=== PATIENT | male | born 1930 | race Caucasian/White ===

== ENCOUNTER 2016-12-18 06:30 | Day surgery (SDC) | payer MEDICARE, OTHER ==
[~2016-12-18 06:30] MED LIST: ALLOPURINOL300 M1 PO; CIPRO500 MG PO; COLACE-T100 MG PO; COLACE100 M1 PO; COREG3.125 M1 PO; FISH OIL 1,2001 EAC5 PO; INDERAL40 MG PO; LEVAQUIN250 MG PO; Magnesium; NIACIN; NIACIN PO; PRILOSEC OTC20 M1 PO; VITAMIN D31000 UNI3 PO; VITAMIN D50000 UNIT PO
[2016-12-18 08:09] LABS: PROTHROMBIN TIME 11.1 SECONDS (9.0-13.6)
[2016-12-19 05:46] LABS: HCT-HEMATOCRIT 34.9 % (36.0-53.5); HGB-HEMOGLOBIN 11.7 gm/dl (13.5-17.0); MCV (MEAN CELL VOLUME) 89.3 fl (82.0-96.0); RED CELL DISTRIBUTION WIDTH 14.2 % (12.4-16.4)
[2016-12-19] MEDS ORDERED: CIPRO250 M2 PO (12:45)
== END 2016-12-19 14:20 ==
LOC: SRG 06:30 → SHSB 06:31 → ORW 09:15 → PACU 10:20 → CAR1 11:20
PROVIDERS: Urology
PROC: 0TBB8ZZ Excision of Bladder, Via Natural or Artificial Opening Endoscopic (ICD-10-PCS; principal; 2016-12-18)
DX: C67.0 Malignant neoplasm of trigone of bladder (principal); I10 Essential (primary) hypertension; M10.9 Gout, unspecified; G62.9 Polyneuropathy, unspecified; K21.9 Gastro-esophageal reflux disease without esophagitis; I12.9 Hypertensive chronic kidney disease with stage 1 through stage 4 chronic kidney disease, or unspecified chronic kidney disease; N18.3 Chronic kidney disease, stage 3 (moderate); E78.5 Hyperlipidemia, unspecified; Z79.899 Other long term (current) drug therapy; Z88.0 Allergy status to penicillin; Z80.8 Family history of malignant neoplasm of other organs or systems; Z90.79 Acquired absence of other genital organ(s); Z98.890 Other specified postprocedural states
CPT/HCPCS: C1769; J1956; Q9968